=== PATIENT | male | born 1970 | race Caucasian/White ===

== ENCOUNTER 2023-01-12 12:23 | Inpatient (IN) ==
[2023-01-12 13:13] LABS: Basophils # (auto) 0.05 K/uL (0-0.2); Basophils % (auto) 0.4 %; Eosinophils # (auto) 2.76 K/uL (0-0.50); Eosinophils % (auto) 20.8 %; Hematocrit (blood only) 49.2 % (42.0-52.0); Hemoglobin 16.8 g/dl (14.0-18.0); Immature Granulocytes # (auto) 0.04 K/uL (0.01-0.20); Immature Granulocytes % (auto) 0.3 %; Lymphocytes # (auto) 1.61 K/uL (1.2-3.4); Lymphocytes % (auto) 12.2 %; Mean Corpuscular Hgb Conc 34.1 g/dL (32.0-36.0); Mean Corpuscular Volume 87.9 fL (80.0-100.0); Mean Platelet Volume 10.1 fL (9.4-12.4); Monocytes # (auto) 0.87 K/uL (0.11-0.59); Monocytes % (auto) 6.6 %; Neutrophils # (auto) 7.91 K/uL (1.40-6.50); Neutrophils % (auto) 59.7 %; Platelet Count 278 K/uL (130-400); RDW Coefficient of Variation 13.8 % (11.5-14.5); RDW Standard Deviation 43.7 fL (36.4-46.3); White Blood Count 13.24 K/ul (4.8-10.8)
[2023-01-12 13:16] LABS: Appearance Urine Clear (Clear); Bacteria Urine Automated Negative (Negative); Bilirubin Urine Negative (Negative); Blood Urine Negative (Negative); Color Urine Dark Yellow; Glucose Urine UA Negative (Negative); Ketones Urine Trace (Negative); Leukocyte Esterase Urine Negative (Negative); Nitrite Urine Negative (Negative); Protein Urine Trace (Negative); RBC Urine Automated 0-4 /hpf (0-4); Specific Gravity Urine 1.033 (1.000-1.030); Urobilinogen Urine Negative (Negative)
[2023-01-12 13:27] LABS: Alanine Aminotransferase 15 U/L (7-52); Albumin Globulin Ratio 1.5 (0.9-2); Albumin Level 4.4 gm/dl (3.4-5.0); Alkaline Phosphatase 51 U/L (34-104); Anion Gap 7 (3-11); Aspartate Aminotransferase 15 U/L (13-39); BUN Creatinine Ratio 12.4 (10-20); Bilirubin,Total 2.2 mg/dl (0.2-1.0); Blood Urea Nitrogen 14 mg/dl (6-23); Calcium 9.8 mg/dl (8.6-10.3); Carbon Dioxide 24 mmol/L (21-32); Chloride 107 mmol/L (98-107); Est GFR (African American) 86.1 ml/min; Est GFR (Non-African American) 74.3 ml/min; Glucose 146 mg/dl (70-99(Fasting)); Lipase 10 U/L (11-82); Sodium 138 mmol/L (136-145); Total Protein 7.4 gm/dl (6.0-8.3)
[2023-01-12] MEDS ORDERED: SODIUM CHLORIDE 0.9% 1,000 ML IV ONE (13:48)
--- NOTE | 2023-01-12 13:53 | Emergency Department Note ---
Impression & Plan SBO (small bowel obstruction) ADMIT ED Provider Note HPI: The patient is a 52-year-old gentleman with history of type 2 diabetes, presents emergency department with a chief complaint of epigastric pain as well as nausea and vomiting. Patient states his symptoms were ongoing last night, he states at that time he went to [place] ED and was diagnosed with a small bowel obstruction on CT imaging. Patient states that he signed out AMA as there were no beds available at either transferring facility from the ED in [place]. Patient states he feels fine this morning however he was concerned about his symptoms and therefore came to the ED to be evaluated. Patient states he had similar symptoms about 2 weeks ago that resolved after about 2 to 3 days. On arrival here to the ED the patient is in no acute distress, he is hemodynamically stable, he denies any current abdominal pain or nausea. ROS: - Per HPI Differential Diagnosis: Acute cholecystitis, acute pancreatitis, acute gastritis, peptic ulcer disease, small bowel obstruction, amongst other potentia l pathologies. *Outpatient medications and allergy history reviewed. *Pertinent external medical records reviewed. PE: General: Alert HEENT: Normocephalic, trachea midline Eyes: Extraocular eye movement is intact, no scleral erythema Pulmonary: Clear to auscultation bilaterally, no wheezing Cardio: Regular rate and rhythm GI: Abdomen is soft to palpation, mild distention : No suprapubic tenderness MSK: No evidence of trauma or malformation of the extremities, no edema Skin: No evidence of rash Neuro: Alert, no focal deficits Psychiatric: Cooperative pvc monitor: (As interpreted by myself): - An order was placed for continuous cardiac monitoring - Patient was noted to be in sinus rhythm with a rate of 90 Interventions provided in ED: -IV fluid bolus Medical Decision Making: Shortly after the patient arrived IV was established and lab work obtained, patient was maintained on cardiac sonographer. Lab work does show evidence of leukocytosis at 13.2, platelet count is normal, hemoglobin is normal, CMP does not show any critical findings, total bilirubin slightly elevated at 2.2, no transaminitis. Urinalysis shows trace ketonuria, no evidence of infection, no hematuria. CT imaging of the abdomen pelvis was obtained and shows evidence of small bowel obstruction without an obvious transition point. Patient has not had any nausea or vomiting today, he did last night but he has not had any oral intake within the past 12 hours. I suspect this may be why his symptoms seem to have improved. Given his lack of any active vomiting will defer NG tube at this time. I discussed all the above findings with the patient and his at the bedside, they are in agreement for admission for observation. Lactic acid was ordered and is pending at the time of admission. I discussed the patient's case with the on-call midlevel provider for [facility], [place], and patient will be accepted to the hospitalist service under Dr. Dela Cruz for further manage ment. Consultants: -Hospitalist service, Dr. Dela Cruz Disposition discussion held by myself with: Patient and at bedside Diagnosis: 1. Small bowel obstruction, acute 2. Ketonuria, trace 3. Leukocytosis, acute, nonspecific Disposition: Admission [facility] DO Emergency Medicine Past Med/Surg History Social History Smoking Status: Never smoker Preferred Language: Ivorian Feels Safe at Home: Yes Allergies Allergies Allergy/AdvReac Type Severity Reaction Status Date / Time No Known Allergies Allergy Mild Verified 11/24/07 17:02 Home Meds Home Medications Medication Instructions Recorded Confirmed Fexofenadine/Pseudoephedrine 1 tab PO DAILY ##0 11/24/07 (Vanda-D 24HR 180/240MG *) Results & Data (ED) Vital Signs Vital Signs - 24 hr 01/12/23 12:27 Temperature 36.8 C Temperature Source Temporal Artery Scan Pulse Rate 91 H Respiratory Rate 16 Respiratory Effort / Characteristics Non-Labored Respiratory Depth Normal Blood Pressure 119/78 Blood Pressure Mean 91 Pulse Oximetry 97 Oxygen Delivery Method Room Air Sepsis Recent Fever Within 48 Hours No Sepsis New/Unexplained Change in Mental Status No Sepsis Action Taken by Nursing No Action Required Laboratory Data 01/12/23 12:35 01/12/23 12:35 Lab Results 01/12/23 01/12/23 01/12/23 Range/Units 12:35 12:35 12:35 WBC 13.24 H (4.8-10.8) K/ul RBC 5.60 (4.70-6.10) M/uL Hgb 16.8 (14.0-18.0) g/dl Hct 49.2 (42.0-52.0) % MCV 87.9 (80.0-100.0) fL MCH 30.0 (25.0-34.0) pg MCHC 34.1 (32.0-36.0) g/dL RDW Std Deviation 43.7 (36.4-46.3) fL RDW Coeff of Nuvia 13.8 (11.5-14.5) % Plt Count 278 (130-400) K/uL MPV 10.1 (9.4-12.4) fL Immature Gran % (Auto) 0.3 % Neut % (Auto) 59.7 % Lymph % (Auto) 12.2 % [place] % (Auto) 6.6 % Eos % (Auto) 20.8 % Baso % (Auto) 0.4 % Neut # (Auto) 7.91 H (1.40-6.50) K/uL Lymph # (Auto) 1.61 (1.2-3.4) K/uL [place] # (Auto) 0.87 H (0.11-0.59) K/uL Eos # (Auto) 2.76 H (0-0.50) K/uL Baso # (Auto) 0.05 (0-0.2) K/uL Immature Gran # (Auto) 0.04 (0.01-0.20) K/uL Sodium 138 (136-145) mmol/L Potassium 4.0 (3.5-5.1) mmol/L Chloride 107 (98-107) mmol/L Carbon Dioxide 24 (21-32) mmol/L Anion Gap 7 (3-11) BUN 14 (6-23) mg/dl Creatinine 1.13 (0.6-1.4) mg/dl Est Cr Clr Drug Dosing Not Reportable Est GFR ( Amer) 86.1 ml/min Est GFR (Non-Af Amer) 74.3 ml/min BUN/Creatinine Ratio 12.4 (10-20) Glucose 146 H (70-99(Fasting)) mg/dl Lactate (0.4-2.0) mmol/L Calcium 9.8 (8.6-10.3) mg/dl Total Bilirubin 2.2 H (0.2-1.0) mg/dl AST 15 (13-39) U/L ALT 15 (7-52) U/L Alkaline Phosphatase 51 (34-104) U/L Total Protein 7.4 (6.0-8.3) gm/dl Albumin 4.4 (3.4-5.0) gm/dl Globulin 3.0 (2.5-4.0) gm/dl Albumin/Globulin Ratio 1.5 (0.9-2) Lipase 10 L (11-82) U/L Urine Color Dark Yellow Urine Appearance Clear (Clear) Urine pH 5.0 (4.5-7.5) Ur Specific Cook 1.033 H (1.000-1.030) Urine Protein Trace H (Negative) Urine Glucose (UA) Negative (Negative) Urine Ketones Trace H (Negative) Urine Blood Negative (Negative) Urine Nitrite Negative (Negative) Urine Bilirubin Negative (Negative) Urine Urobilinogen Negative (Negative) Ur Leukocyte Esterase Negative (Negative) Urine WBC (Auto) 1-5 (0-5) /hpf Urine RBC (Auto) 0-4 (0-4) /hpf U Hyaline Cast (Auto) 1-5 (0-5) /lpf U Epithel Cells (Auto) 5-10 H (0-5) /lpf Urine Bacteria (Auto) Negative (Negative) 01/12/23 Range/Units 15:00 WBC (4.8-10.8) K/ul RBC (4.70-6.10) M/uL Hgb (14.0-18.0) g/dl Hct (42.0-52.0) % MCV (80.0-100.0) fL MCH (25.0-34.0) pg MCHC (32.0-36.0) g/dL RDW Std Deviation (36.4-46.3) fL RDW Coeff of Nuvia (11.5-14.5) % Plt Count (130-400) K/uL MPV (9.4-12.4) fL Immature Gran % (Auto) % Neut % (Auto) % Lymph % (Auto) % [place] % (Auto) % Eos % (Auto) % Baso % (Auto) % Neut # (Auto) (1.40-6.50) K/uL Lymph # (Auto) (1.2-3.4) K/uL [place] # (Auto) (0.11-0.59) K/uL Eos # (Auto) (0-0.50) K/uL Baso # (Auto) (0-0.2) K/uL Immature Gran # (Auto) (0.01-0.20) K/uL Sodium (136-145) mmol/L Potassium (3.5-5.1) mmol/L Chloride (98-107) mmol/L Carbon Dioxide (21-32) mmol/L Anion Gap (3-11) BUN (6-23) mg/dl Creatinine (0.6-1.4) mg/dl Est Cr Clr Drug Dosing Est GFR ( Amer) ml/min Est GFR (Non-Af Amer) ml/min BUN/Creatinine Ratio (10-20) Glucose (70-99(Fasting)) mg/dl Lactate 1.0 (0.4-2.0) mmol/L Calcium (8.6-10.3) mg/dl Total Bilirubin (0.2-1.0) mg/dl AST (13-39) U/L ALT (7-52) U/L Alkaline Phosphatase (34-104) U/L Total Protein (6.0-8.3) gm/dl Albumin (3.4-5.0) gm/dl Globulin (2.5-4.0) gm/dl Albumin/Globulin Ratio (0.9-2) Lipase (11-82) U/L Urine Color Urine Appearance (Clear) Urine pH (4.5-7.5) Ur Specific Cook (1.000-1.030) Urine Protein (Negative) Urine Glucose (UA) (Negative) Urine Ketones (Negative) Urine Blood (Negative) Urine Nitrite (Negative) Urine Bilirubin (Negative) Urine Urobilinogen (Negative) Ur Leukocyte Esterase (Negative) Urine WBC (Auto) (0-5) /hpf Urine RBC (Auto) (0-4) /hpf U Hyaline Cast (Auto) (0-5) /lpf U Epithel Cells (Auto) (0-5) /lpf Urine Bacteria (Auto) (Negative) Administered Medications Discontinued Medications Sodium Chloride (Nss 1000ml) 1,000 mls @ 999 mls/hr IV .[id number] ONE Stop: 01/12/23 14:48 Last Admin: 01/12/23 14:48 Dose: 999 mls/hr Documented By: YAYO Ioversol (Optiray 320 100ml) 93 ml IV ONCE ONE Stop: 01/12/23 14:28 Last Admin: 01/12/23 14:27 Dose: 93 ml Documented By: EDK Imaging Data Radiologist's Impression: Abdomen/Pelvis CT 01/12/23 13:48 CT SCAN OF THE ABDOMEN AND PELVIS WITH IV CONTRAST CLINICAL HISTORY: Upper abdominal pain. Nausea and vomiting. COMPARISON STUDY: No priors. TECHNIQUE: Following the IV administration of 93 cc of Optiray 320, CT scan of the abdomen and pelvis is performed from the lung bases to the proximal femora. Images are reviewed in the axial, sagittal, and coronal planes. IV contrast was administered without complication. A dose lowering technique was utilized adhering to the principles of ALARA. CT DOSE: 1456.64 mGy.cm FINDINGS: Lung bases: The heart is normal in size and without pericardial effusion. The lung bases are clear. Liver: The contrast-enhanced liver is normal in size, contour, and attenuation. There is no intrahepatic biliary ductal dilatation. The hepatic veins and portal veins are patent. Gallbladder: There are calcified gallstones with no CT evidence of acute cholecystitis. Spleen: Normal in size and attenuation. Pancreas: Unremarkable. Adrenal glands: Unremarkable. Kidneys: The contrast enhanced kidneys demonstrate mild cortical atrophy and are without hydronephrosis. Small renal sinus cysts are seen on the left. A 12 mm cortical cyst is noted in the left lower pole. The kidneys enhance symmetrically. Abdominal vasculature: The abdominal aorta is normal in course and caliber. Bowel: The proximal small bowel loops are distended and fluid-filled measuring up to 4.3 cm diameter. This gradually tapers to decompressed distal small bowel, and the appearance is consistent with a small bowel obstruction. No discrete transition point is identified. There is trace interloop fluid. No focally thick-walled bowel loops are identified, and there is no pneumatosis intestinalis or portal venous gas. The appendix is well-visualized and normal. Peritoneum: There is trace interloop fluid. No intraperitoneal free air is seen. There is evidence of previous ventral hernia repair. Lymphadenopathy: None. Pelvic viscera: Hyperdense fluid within the bladder may represent excreted contrast. The bladder, prostate, and seminal vesicles are otherwise normal as visualized. Skeletal structures: There is mild lumbosacral spondylosis. No lytic or blastic lesions are seen. IMPRESSION: 1. Findings are consistent with a small bowel obstruction. The dilated proximal small bowel loops gradually taper to completely decompressed distal small bowel, with no discrete transition point identified. This may be a partial or intermittent obstruction. Correlate clinically. 2. There is trace interloop fluid. No intraperitoneal free air, thick-walled bowel loops, pneumatosis intestinalis, or portal venous gas is seen. 3. Cholelithiasis. 4. Hyperdense fluid within the bladder lumen is indeterminate and likely represent excreted contrast. Clinical correlation will be required. 5. Additional findings as above. ACT 112: Negative or not required by law. Electronically signed by: Oziel Rocha M.D. 01/12/2023 2:43 PM Discharge Plan Visit Data Chief Complaint: Abdominal Pain Stated Complaint: PARTIAL BLOCKAGE IN SMALL INTESTINE - ABD PAIN ED Provider: [facility] Discharge Problem: SBO (small bowel obstruction) Forms Stand Alone Forms: [id number] Prescriptions Prescriptions: No Action Fexofenadine/Pseudoephedrine (Vanda-D 24HR 180/240MG *) [id number] 1 tab PO DAILY Qty: 0 Referrals Referrals: Adolph Berry, MSN, [employer] [facility] [Primary Care Provider] -
[2023-01-12] MEDS ORDERED: OPTIRAY 320 100ml IV ONE (14:27)
--- NOTE | 2023-01-12 14:44 | CT Scan Report ---
CT SCAN OF THE ABDOMEN AND PELVIS WITH IV CONTRAST CLINICAL HISTORY: Upper abdominal pain. Nausea and vomiting. COMPARISON STUDY: No priors. TECHNIQUE: Following the IV administration of 93 cc of Optiray 320, CT scan of the abdomen and pelvi s is performed from the lung bases to the proximal femora. Images are reviewed in the axial, sagittal , and coronal planes. IV contrast was administered without complication. A dose lowering technique wa s utilized adhering to the principles of ALARA. CT DOSE: 1456.64 mGy.cm FINDINGS: Lung bases: The heart is normal in size and without pericardial effusion. The lung bases are clear. Liver: The contrast-enhanced liver is normal in size, contour, and attenuation. There is no intrahepa tic biliary ductal dilatation. The hepatic veins and portal veins are patent. Gallbladder: There are calcified gallstones with no CT evidence of acute cholecystitis. Spleen: Normal in size and attenuation. Pancreas: Unremarkable. Adrenal glands: Unremarkable. Kidneys: The contrast enhanced kidneys demonstrate mild cortical atrophy and are without hydronephros is. Small renal sinus cysts are seen on the left. A 12 mm cortical cyst is noted in the left lower po le. The kidneys enhance symmetrically. Abdominal vasculature: The abdominal aorta is normal in course and caliber. Bowel: The proximal small bowel loops are distended and fluid-filled measuring up to 4.3 cm diameter. This gradually tapers to decompressed distal small bowel, and the appearance is consistent with a sm all bowel obstruction. No discrete transition point is identified. There is trace interloop fluid. No focally thick-walled bowel loops are identified, and there is no pneumatosis intestinalis or portal venous gas. The appendix is well-visualized and normal. Peritoneum: There is trace interloop fluid. No intraperitoneal free air is seen. There is evidence of previous ventral hernia repair. Lymphadenopathy: None. Pelvic viscera: Hyperdense fluid within the bladder may represent excreted contrast. The bladder, pro state, and seminal vesicles are otherwise normal as visualized. Skeletal structures: There is mild lumbosacral spondylosis. No lytic or blastic lesions are seen. IMPRESSION: 1. Findings are consistent with a small bowel obstruction. The dilated proximal small bowel loops gra dually taper to completely decompressed distal small bowel, with no discrete transition point identif ied. This may be a partial or intermittent obstruction. Correlate clinically. 2. There is trace interloop fluid. No intraperitoneal free air, thick-walled bowel loops, pneumatosis intestinalis, or portal venous gas is seen. 3. Cholelithiasis. 4. Hyperdense fluid within the bladder lumen is indeterminate and likely represent excreted contrast. Clinical correlation will be required. 5. Additional findings as above. ACT 112: Negative or not required by law. Electronically signed by: Oziel Rocha M.D. 01/12/2023 2:43 PM
--- NOTE | 2023-01-12 16:00 | History & Physical Report ---
Date of Service January 12, 2023 Assessment & Plan (1) SBO (small bowel obstruction): Plan: This is a 52 y/o male with DM2, HTN, and on chronic AC with Xarelto due to history of DVT who presented to the ED today for evaluation after being diagnosed with an SBO last night at the [facility] ED. Symptomatically, he is improved today but also reports no significant oral intake since lunch yesterday. CT abd/pel personally reviewed - dilated proximal small bowel but no clear transition point. Only prior abdominal surgery is the umbilical hernia repair. - Admit to med surg for observation with the initiation of oral intake - Consult surgery although does appear like obstruction will resolve with conservative management - Hold on NGT for now since not vomiting and feeling better overall - if develops vomiting, will re-evaluate - Trial of clear liquid diet since pt has not eaten x 24 hours and is clinically improved. If recurrent symptoms, will make pt NPO again. - Anti-emetics prn for nausea (2) Type 2 diabetes mellitus: Plan: Stopping Mounjaro due to side effects since he started this 9 weeks ago. Insulin sliding scale was admitted (3) History of DVT of lower extremity: Plan: Holding Xarelto for now although need for operative intervention at this point seems low - heparin gtt with no bolus, resume Xarelto once able (4) Essential hypertension: Plan: Continue outpatient Lisinopril Plan Pt seen and reviewed with collaborating physician, Dr. Dela Cruz. Plan of care discussed and as outlined above. Code Status: Full code DVT Prophylaxis: Heparin gtt until can resume Xarelto (hx DVT previously) Alyssa Eli PA-C History of Present Illness Chief Complaint: abdominal pain and bloating x 2 days Primary Care Provider: Adolph Berry, MSN, OPHTHALMIC ASST This is a 52 y/o male with DM2, HTN, hx DVT bilateral LE, on chronic Xarelto, and prior umbilical hernia repair presents to the ED with two days of bloating, nausea, and abdominal discomfort. Pt reports current episode of symptoms started Sunday night while sleeping with increased sulfur-tasting eructation and nausea. Yesterday, he tried to eat Spaghetti Os for lunch and felt dramatically worse after with increased abdominal bloating, diffuse abdominal cramping pains then vomiting of undigested food x 3. He had some relief of his symptoms after vomiting but incomplete so went to the [facility] ED for evaluation. In the ED, he was diagnosed with an SBO and recommended for admission but there were no beds at either [facility] or [facility] to transfer patient to so he decided to sign out AMA and go home instead. Since being home, his symptoms have continued to improve but he has not tried to eat at all since yesterday lunch. He had associated liquid non-bloody diarrhea yesterday that also seems to be improving. This is his third episode of symptoms in the last nine weeks. Prior episodes lasted 1-2.5 days and resolved without specific intervention. He has noted diarrhea with these episodes and reports that he was prescribed Lomotil for this but that it didn't help so he has not been taking. He notes that nine weeks ago he started Mounjaro and changed his diet to add protein shakes and increase his fiber intake including the addition of Metamucil BID. He is unsure if this is related to his current symptoms. He had a colonoscopy earlier this year that was negative. His only prior abdominal surgery was an umbilical hernia several years ago. No prior bowel obstruction. Allergies Allergy/AdvReac Type Severity Reaction Status Date / Time dapagliflozin [From Farxiga] AdvReac infected Verified 01/12/23 15:39 genitals semaglutide [From Ozempic] AdvReac Nausea Verified 01/12/23 15:39 Home Medications Medication Instructions Recorded Confirmed Type acetaminophen 500 mg tablet 1,000 mg PO Q6H PRN Pain 01/12/23 01/12/23 History (Tylenol Extra Strength) lisinopril 30 mg tablet 30 mg PO DAILY 01/12/23 01/12/23 History rivaroxaban 10 mg tablet (Xarelto) 10 mg PO QPM 01/12/23 01/12/23 History tirzepatide 2.5 mg/0.5 mL 2.5 mg subcut WE 01/12/23 01/12/23 History subcutaneous pen injector (Mounjaro) Past Med/Surg History Medical History Essential hypertension History of DVT of lower extremity Type 2 diabetes mellitus Surgical History History of colonoscopy 2022 - normal per pt Hx of umbilical hernia repair Family History Grandfather (Maternal) Colorectal cancer Social History Smoking Status: Never smoker Hx Alcohol Use: No Hx Substance Use: No Preferred Language: Khmer Communication Ability: Effective Supervisor Hydrochloric Area Required: No Beliefs That Will Affect Care: None Current Living Situation: Alone current occupational status: employed current occupation: machinist supervisor outside Other Information That Helps Us Care for You: No Feels Safe at Home: Yes Safety Concerns: Feels Safe At This Time Review of Systems Review of Systems: All systems reviewed & are unremarkable except as noted in HPI & below Constitutional: no fever, no chills and no sweats Eyes: no diplopia and no worsening vision Ear, Nose, Mouth, Throat: no nasal congestion, no nasal discharge and no sore throat Respiratory: no cough and no dyspnea Cardiovascular: no chest pain, no palpitations and no edema Gastrointestinal: as per Subjective / HPI Genitourinary: no dysuria or no hematuria Musculoskeletal: no back pain, no neck pain and no myalgia Integumentary: no rash and no yellowing of the skin Neurologic: no generalized weakness, no syncope and no headache(s) Psychiatric: no depression and no anxiety Physical Exam Constitutional: well developed and well nourished; no acute distress Eyes: + anicteric sclerae Neck: trachea midline Respiratory: no respiratory distress and no labored breathing Auscultation: lungs clear to auscultation bilaterally; no rales, no rhonchi and no wheezes Cardiovascular: Rate/Rhythm: regular rate and regular rhythm Vessels: posterior tibial pulses present and radial pulses present Extremities: no pedal edema Gastrointestinal (Abdomen): Inspection/Auscultation: + abdomen distended and normal bowel sounds Percussion/Palpation: + abdomen tender (upper abdomen) and abdomen soft Musculoskeletal: Head/Neck/Chest: normocephalic, head atraumatic and neck supple Skin: no rashes and no jaundice Neurologic: moves all extremities; no focal motor deficits and not confused Psychiatric: A+Ox3, euthymic affect Results & Data Results & Data Vital Signs (Past 12 Hours) Vital Signs Temp Pulse Resp BP Pulse Ox O2 Del Method 01/12/23 12:27 36.8 C 91 H 16 119/78 97 Room Air Laboratory Results Laboratory Results - last 24 hr 01/12/23 01/12/23 01/12/23 12:35 12:35 12:35 WBC 13.24 H RBC 5.60 Hgb 16.8 Hct 49.2 MCV 87.9 MCH 30.0 MCHC 34.1 RDW Std Deviation 43.7 RDW Coeff of Nuvia 13.8 Plt Count 278 MPV 10.1 Immature Gran % (Auto) 0.3 Neut % (Auto) 59.7 Lymph % (Auto) 12.2 Rock % (Auto) 6.6 Eos % (Auto) 20.8 Baso % (Auto) 0.4 Neut # (Auto) 7.91 H Lymph # (Auto) 1.61 Rock # (Auto) 0.87 H Eos # (Auto) 2.76 H Baso # (Auto) 0.05 Immature Gran # (Auto) 0.04 Sodium 138 Potassium 4.0 Chloride 107 Carbon Dioxide 24 Anion Gap 7 BUN 14 Creatinine 1.13 Est Cr Clr Drug Dosing Not Reportable Est GFR ( Amer) 86.1 Est GFR (Non-Af Amer) 74.3 BUN/Creatinine Ratio 12.4 Glucose 146 H Lactate Calcium 9.8 Total Bilirubin 2.2 H AST 15 ALT 15 Alkaline Phosphatase 51 Total Protein 7.4 Albumin 4.4 Globulin 3.0 Albumin/Globulin Ratio 1.5 Lipase 10 L Urine Color Dark Yellow Urine Appearance Clear Urine pH 5.0 Ur Specific Stuart 1.033 H Urine Protein Trace H Urine Glucose (UA) Negative Urine Ketones Trace H Urine Blood Negative Urine Nitrite Negative Urine Bilirubin Negative Urine Urobilinogen Negative Ur Leukocyte Esterase Negative Urine WBC (Auto) 1-5 Urine RBC (Auto) 0-4 U Hyaline Cast (Auto) 1-5 U Epithel Cells (Auto) 5-10 H Urine Bacteria (Auto) Negative 01/12/23 15:00 WBC RBC Hgb Hct MCV MCH MCHC RDW Std Deviation RDW Coeff of Nuvia Plt Count MPV Immature Gran % (Auto) Neut % (Auto) Lymph % (Auto) Rock % (Auto) Eos % (Auto) Baso % (Auto) Neut # (Auto) Lymph # (Auto) Rock # (Auto) Eos # (Auto) Baso # (Auto) Immature Gran # (Auto) Sodium Potassium Chloride Carbon Dioxide Anion Gap BUN Creatinine Est Cr Clr Drug Dosing Est GFR ( Amer) Est GFR (Non-Af Amer) BUN/Creatinine Ratio Glucose Lactate 1.0 Calcium Total Bilirubin AST ALT Alkaline Phosphatase Total Protein Albumin Globulin Albumin/Globulin Ratio Lipase Urine Color Urine Appearance Urine pH Ur Specific Stuart Urine Protein Urine Glucose (UA) Urine Ketones Urine Blood Urine Nitrite Urine Bilirubin Urine Urobilinogen Ur Leukocyte Esterase Urine WBC (Auto) Urine RBC (Auto) U Hyaline Cast (Auto) U Epithel Cells (Auto) Urine Bacteria (Auto) Diagnostic Findings Abdomen/Pelvis CT 01/12/23 13:48 CT SCAN OF THE ABDOMEN AND PELVIS WITH IV CONTRAST CLINICAL HISTORY: Upper abdominal pain. Nausea and vomiting. COMPARISON STUDY: No priors. TECHNIQUE: Following the IV administration of 93 cc of Optiray 320, CT scan of the abdomen and pelvis is performed from the lung bases to the proximal femora. Images are reviewed in the axial, sagittal, and coronal planes. IV contrast was administered without complication. A dose lowering technique was utilized adhering to the principles of ALARA. CT DOSE: 1456.64 mGy.cm FINDINGS: Lung bases: The heart is normal in size and without pericardial effusion. The lung bases are clear. Liver: The contrast-enhanced liver is normal in size, contour, and attenuation. There is no intrahepatic biliary ductal dilatation. The hepatic veins and portal veins are patent. Gallbladder: There are calcified gallstones with no CT evidence of acute cholecystitis. Spleen: Normal in size and attenuation. Pancreas: Unremarkable. Adrenal glands: Unremarkable. Kidneys: The contrast enhanced kidneys demonstrate mild cortical atrophy and are without hydronephrosis. Small renal sinus cysts are seen on the left. A 12 mm cortical cyst is noted in the left lower pole. The kidneys enhance symmetrically. Abdominal vasculature: The abdominal aorta is normal in course and caliber. Bowel: The proximal small bowel loops are distended and fluid-filled measuring up to 4.3 cm diameter. This gradually tapers to decompressed distal small bowel, and the appearance is consistent with a small bowel obstruction. No discrete transition point is identified. There is trace interloop fluid. No focally thick-walled bowel loops are identified, and there is no pneumatosis intestinalis or portal venous gas. The appendix is well-visualized and normal. Peritoneum: There is trace interloop fluid. No intraperitoneal free air is seen. There is evidence of previous ventral hernia repair. Lymphadenopathy: None. Pelvic viscera: Hyperdense fluid within the bladder may represent excreted contrast. The bladder, prostate, and seminal vesicles are otherwise normal as visualized. Skeletal structures: There is mild lumbosacral spondylosis. No lytic or blastic lesions are seen. IMPRESSION: 1. Findings are consistent with a small bowel obstruction. The dilated proximal small bowel loops gradually taper to completely decompressed distal small bowel, with no discrete transition point identified. This may be a partial or intermittent obstruction. Correlate clinically. 2. There is trace interloop fluid. No intraperitoneal free air, thick-walled bowel loops, pneumatosis intestinalis, or portal venous gas is seen. 3. Cholelithiasis. 4. Hyperdense fluid within the bladder lumen is indeterminate and likely represent excreted contrast. Clinical correlation will be required. 5. Additional findings as above. ACT 112: Negative or not required by law. Electronically signed by: Oziel Rocha M.D. 01/12/2023 2:43 PM Medications Administered Discontinued Medications Sodium Chloride (Nss 1000ml) 1,000 mls @ 999 mls/hr IV .Q1H1M ONE Stop: 01/12/23 14:48 Last Admin: 01/12/23 14:48 Dose: 999 mls/hr Documented By: TBS Ioversol (Optiray 320 100ml) 93 ml IV ONCE ONE Stop: 01/12/23 14:28 Last Admin: 01/12/23 14:27 Dose: 93 ml Documented By: EDK Code Status & VTE Plan VTE Prophylaxis Plan VTE Prophylaxis will be ordered: Yes Supervising Physician Co-Signing Physician Notes I have seen and examined the patient and have discussed the case with the provider above. I agree with the assessment and plan as stated with the fol lowing exceptions. 52 yo M presenting with acute abdominal pain and vomiting in the last 24 hours. Workup in the ER includes an abd/pel CT scan with IV contrast which reveals a small bowel obstruction with no discrete transition point. He is currently not in pain and denies nausea. Recently was started on Mounjaro (GLP-1 agonist) 9 weeks ago for uncontrolled DMII. He is part of [facility], so those records are not currently available. He reports having been a diabetic for the past 4 years and has tried metformin which didnt do much for me. He has tried Ozempic which gave him side effects. On exam he is in NAD. He is morbidly obese and has an umbilical hernia which is easily reduced. Vitals are BP119/78, P 91, R 16, AF and oxygenating 97% on RA. Heart and lung exam unremarkable or as noted above. Labwork reviewed, noting mild leukocytosis of 14K and otherwise normal CBC. TB slightly elevated to 2.2 with normal LFTs. Lipase 10 and no UTI. Glucose is 146 and patient reports not having any food since 24 hours ago, so is fasting. 1. SBO 2. Uncontrolled DMII 3. Morbid obesity Agree with plan above for clear liquids given ongoing bowel rest for the past 24 hours. If he has pain or nausea, will make NPO. No need for NG tube at this time. Appreciate surgical evaluation. Pt has an umbilical hernia which is reducible and nontender. Discontinue Mounjaro given the side effects he experienced, and would recommend avoiding GLP-1 agonists at this time. Consider metformin and once daily Lantus, glipizide or other agent. Appreciate nurse educator consultation. Follow-up closely with PCP to guide treatment for DMII. DO Jose De Jesus
[2023-01-12] MEDS ORDERED: GLUCOSE 10 TAB/TUBE PO PRN (18:37)
[2023-01-12] MEDS ORDERED: GLUCAGON FOR INJ 1 MG VIAL SQ PRN (18:37)
[2023-01-12] MEDS ORDERED: DEXTROSE 50% 50 ML SYRINGE IV PRN (18:37)
[2023-01-12] MEDS ORDERED: CARBOHYDRATES FOR HYPOGLYCEMIA PO PRN (18:37)
[2023-01-12] MEDS ORDERED: GLUCOSE 40% GEL 15 GM TUBE PO PRN (18:37)
[2023-01-12] MEDS ORDERED: ONDANSETRON INJ 2 MG/ML 2 ML VIAL IV PRN (19:34)
[2023-01-12] MEDS: INSULIN ASPART PER UNIT CHARGE SC SCH ×2 (19:52→20:36)
[2023-01-12 20:17] LABS: Partial Thromboplastin Time 27.6 Seconds (21.0-31.0)
[2023-01-12] MEDS: HEPARIN SODIUM/DEXTROSE 25,000 UNITS/500 ML BAG IV SCH (20:47)
[2023-01-12] MEDS ORDERED: Heparin IV Adult Wt-Based Standard *NO* Bolus Protocol IV ONE (21:00)
--- NOTE | 2023-01-12 21:24 | Surgery Consultation ---
Date of Consultation January 12, 2023 Assessment & Plan (1) SBO (small bowel obstruction): Patient has been admitted on the medical service. We recommend proceeding as follows: The admitting service has placed patient on clear liquids which she appears to be tolerating at this time. I would not place patient on any further diet advancement for this evening and merely monitor how he tolerates clear liquids. If the patient has improvement of his abdominal exam and continues to have bowel function consideration can be given to advancing his diet potentially tomorrow. Would recommend providing analgesics as needed Would recommend antiemetics as needed. As patient has not had any emesis in approximately 24 hours I not feel an NG tube is required. If patient does have worsening clinical course this modality may need to be revisited. Would recommend providing IV fluid for hydration. Patient does have a heparin drip running at this point in time. Additional recommendations be forthcoming based on his clinical course as it unfolds Supervising Physician Co-Signing Physician Notes d/w loly cortez, labs and imaging reviewed, agree with above. CT with gentle tapering from dilated bowel to decompressed bowel, no transition point. Given use of Mounjara, and lack of transition point, doubt sbo, more likely pseudo- obstruction from GLP1 family of drugs. clear liquids, no surgical intervention at this time. consider stopping Mounjara. History of Present Illness Reason for Consultation: Small bowel obstruction Attending Physician: Lucy Dela Cruz, DO History of Present Illness This is a 52-year-old male who presented to [facility] emergency department secondary to approximately 2 days of abdominal pain along with nausea and vomiting. Patient said that his symptoms began approximately 2 days ago some generalized abdominal pain along with nausea and vomiting. Patient says his nausea got worse after he tried to eat lunch. Yesterday he presented to [facility] where he was diagnosed with a small bowel obstr uction and admission was recommended. Patient reportedly signed out AMA but then presented to [facility] emergency department for further care. Patient has not had any fevers, shakes, or chills. Since arrival to [facility] he has been having multiple loose bowel movements. He notes that his abdominal pain has improved. He has not had any emesis in approximate 24 hours and has thus far tolerated clear liquids. Patient notes that he has had 1 abdominal surgery in the form of an umbilical hernia approximately 10 years ago and he believes that they did utilize mesh for this procedure. Since arrival to the hospital the patient has had labs and imaging which I independent reviewed. CT scan of the abdomen pelvis showed patient had findings consistent with a small bowel obstruction with dilated proximal small bowel loops gradually tapering to decompressed distal small bowel with no discrete transition point. Interpreting radiologist felt that this could be either a partial or intermittent obstruction. There is no intraperitoneal free air or pneumatosis intestinalis. There is also no portal venous gas. Labs include a CBC her white blood cell count was elevated at 13.2. Hemoglobin, hematocrit, and platelet count were all within normal range. Chemistry profile showed sodium, potassium, BUN, and creatinine are within normal range. Lactic acid level was not elevated. At the time my interview the patient is resting comfortably in bed and is in no distress. Allergies Allergy/AdvReac Type Severity Reaction Status Date / Time dapagliflozin [From Farxiga] AdvReac infected Verified 01/12/23 15:39 genitals semaglutide [From Ozempic] AdvReac Nausea Verified 01/12/23 15:39 Home Medications Medication Instructions Recorded Confirmed Type acetaminophen 500 mg tablet 1,000 mg PO Q6H PRN Pain 01/12/23 01/12/23 History (Tylenol Extra Strength) lisinopril 30 mg tablet 30 mg PO DAILY 01/12/23 01/12/23 History rivaroxaban 10 mg tablet (Xarelto) 10 mg PO QPM 01/12/23 01/12/23 History tirzepatide 2.5 mg/0.5 mL 2.5 mg subcut WE 01/12/23 01/12/23 History subcutaneous pen injector (Mounjaro) Patient History Medical History Essential hypertension History of DVT of lower extremity Type 2 diabetes mellitus Surgical History History of colonoscopy 2022 - normal per pt Hx of umbilical hernia repair Family History Grandfather (Maternal) Colorectal cancer Social History Smoking Status: Never smoker Hx Alcohol Use: No Hx Substance Use: No Preferred Language: Arabic current occupational status: employed current occupation: production machinist Feels Safe at Home: Yes Review of Systems Constitutional: no fever and no chills Eyes: + corrective lenses Ear, Nose, Mouth, Throat: no ear pain Respiratory: no cough and no dyspnea Cardiovascular: no chest pain Gastrointestinal: as per Subjective / HPI Genitourinary: no dysuria Musculoskeletal: no back pain Integumentary: no rash Neurologic: no localized weakness Physical Exam 2 Constitutional: WD/WN, vitals as above Eyes: Wears glasses ENMT: Ears: no hearing impairment and no external ear abnormality Mouth: no oropharynx abnormality Neck: trachea midline Respiratory: normal respiratory effort; no respiratory distress and no labored breathing Cardiovascular: Rate/Rhythm: regular rate and regular rhythm Gastrointestinal (Abdomen): Abdomen is rotund and minimally distended. Bowel sounds are present. There is no rebound tenderness or guarding. There is minimal pain with palpation. Musculoskeletal: No calf tenderness Skin: no rashes Neurologic: moves all extremities Psychiatric: A+Ox3, euthymic affect Results & Data Vital Signs (Past 12 Hours) Vital Signs Temp Pulse Pulse Resp BP BP Pulse Ox 01/12/23 19:15 79 23 122/75 98 01/12/23 18:11 80 18 128/71 96 01/12/23 12:27 36.8 C 91 H 16 119/78 97 O2 Del Method 01/12/23 19:15 Room Air 01/12/23 18:11 Room Air 01/12/23 12:27 Room Air PG Care Time/CCT Total # of Minutes Spent Total Time Spent with Patient: Total time spent is greater than 50% in coordination of care (as documented) at patient's floor/unit and/or counseling patient: Coding Level of Care Code 82121 IN/OBS CONSULT LVL 5,80M Diagnoses SBO (small bowel obstruction) K56.609
--- NOTE | 2023-01-13 06:20 | Surgery Progress Note ---
Date of Service January 13, 2023 Assessment & Plan (1) SBO (small bowel obstruction): Plan: Patient has been admitted on the medical service. Continue care as follows: Continue clear liquids for the present time. If patient continues to improve consideration be given to advancing his diet further. Continue analgesics as needed Continue antiemetics as needed Encourage ambulation Admission and Anticipated Discharge Date Admission Date: January 12, 2023 Supervising Physician Co-Signing Physician Notes Patient seen and examined, labs and imaging reviewed, agree with above. Admitted with likely small bowel pseudoobstruction, less likely mechanical partial small bowel obstruction. Apparently has had several episodes of this in the past after starting Mounjaro. He feels better, has tolerated clear liquids is passing some flatus. On exam he is afebrile with stable vitals. His abdomen is soft, nontender, nondistended. He can advance to fulls and if he tolerates may advance to low fiber. I would recommend him stopping Mounjaro or at least discussing this with his PCP as he apparently also had trouble with Ozempic. Surgery will sign off, call with questions or concerns. Subjective Patient is resting comfortably in bed. Since my visit last evening he denies any issues specifically noting he has not had any nausea or vomiting and denies any abdominal pain this morning. He said that he did have a bowel movement since admission. He is tolerating clear liquids without any issues. I discussed with shift production associate RN who notes that there have been no issues overnight. Physical Exam Gastrointestinal (Abdomen): Abdomen is soft and nonrigid and is not distended. Bowel sounds are present. There is no rebound tenderness or guarding and there is no pain with palpation. Results & Data Vital Signs (Past 12 Hours) Vital Signs Temp Pulse Pulse Resp BP Pulse Ox O2 Del Method 01/12/23 20:10 36.8 C 72 14 121/77 98 Room Air 01/12/23 19:15 79 23 122/75 98 Room Air PG Care Time/CCT Total # of Minutes Spent Total Time Spent with Patient: Total time spent is greater than 50% in coordination of care (as documented) at patient's floor/unit and/or counseling patient: Coding Level of Care Code 61572 SUB INP/OBS CARE 25MIN Diagnoses SBO (small bowel obstruction) K56.609
[2023-01-13] MEDS ORDERED: lisinopril 10 MG TAB PO SCH (09:00)
[2023-01-13 09:08] LABS: Estimated Average Glucose 154 mg/dl
[2023-01-13] MEDS: INSULIN ASPART PER UNIT CHARGE SC SCH ×2 (09:23→12:44)
[2023-01-13 09:33] LABS: Partial Thromboplastin Ratio 2.4
[2023-01-13] MEDS: HEPARIN SODIUM/DEXTROSE 25,000 UNITS/500 ML BAG IV SCH (10:15)
--- NOTE | 2023-01-13 16:01 | Discharge Summary ---
Date of Service January 13, 2023 Admission HPI Per Admitting Provider This is a 52 y/o male with DM2, HTN, hx DVT bilateral LE, on chronic Xarelto, and prior umbilical hernia repair presents to the ED with two days of bloating, nausea, and abdominal discomfort. Pt reports current episode of symptoms started Sunday night while sleeping with increased sulfur-tasting eructation and nausea. Yesterday, he tried to eat Spaghetti [employer] for lunch and felt dramatically worse after with increased abdominal bloating, diffuse abdominal cramping pains then vomiting of undigested food x 3. He had some relief of his symptoms after vomiting but incomplete so went to the [place] ED for evaluation. In the ED, he was diagnosed with an SBO and recommended for admission but there were no beds at either [facility] or [facility] to transfer patient to so he decided to sign out AMA and go home instead. Since being home, his symptoms have continued to improve but he has not tried to eat at all since yesterday lunch. He had associated liquid non-bloody diarrhea yesterday that also seems to be improving. This is his third episode of symptoms in the last nine weeks. Prior episodes lasted 1-2.5 days and resolved without specific intervention. He has noted diarrhea with these episodes and reports that he was prescribed Lomotil for this but that it didn't help so he has not been taking. He notes that nine weeks ago he started Mounjaro and changed his diet to add protein shakes and increase his fiber intake including the addition of Metamucil BID. He is unsure if this is related to his current symptoms. He had a colonoscopy earlier this year that was negative. His only prior abdominal surgery was an umbilical hernia several years ago. No prior bowel obstruction. Admission Exam Per Admitting Provider Constitutional: well developed and well nourished; no acute distress Eyes: + anicteric sclerae Neck: trachea midline Respiratory: no respiratory distress and no labored breathing Auscultation: lungs clear to auscultation bilaterally; no rales, no rhonchi and no wheezes Cardiovascular: Rate/Rhythm: regular rate and regular rhythm Vessels: posterior tibial pulses present and radial pulses present Extremities: no pedal edema Gastrointestinal (Abdomen): Inspection/Auscultation: + abdomen distended and normal bowel sounds Percussion/Palpation: + abdomen tender (upper abdomen) and abdomen soft Musculoskeletal: Head/Neck/Chest: normocephalic, head atraumatic and neck supple Skin: no rashes and no jaundice Neurologic: moves all extremities; no focal motor deficits and not confused Psychiatric: A+Ox3, euthymic affect Principal Diagnosis Small bowel obstruction History of T2DM, intolerance to dapagliflozin/semaglutide/Mounjaro/metformin Discharge Exam GENERAL: Alert and oriented x3. NAD, on RA. Obese class I HEENT: No pallor, no icterus. Pupils equal, round and reactive to light. Oral mucosa moist. NECK: No JVD, no neck masses. HEART: S1 and S2 heard. Regular rate and rhythm. No murmur, no gallop. RESPIRATORY SYSTEM: Normal AP diameter. No accessory muscle use. No wheezing, no crackles. ABDOMEN: Soft, bowel sounds present, nontender, no distention. CENTRAL NERVOUS SYSTEM: No facial droop. Speech is clear. Obeys simple commands. Moves extremities. EXTREMITIES: No edema, no erythema seen. Discharge Data Allergies Allergy/AdvReac Type Severity Reaction Status Date / Time dapagliflozin [From Farxiga] AdvReac infected Verified 01/12/23 15:39 genitals semaglutide [From Ozempic] AdvReac Nausea Verified 01/12/23 15:39 Consultations 01/12/23 15:00 ED Decision to Admit Stat 01/12/23 18:37 Consult General Surgery Routine Ordered Studies 01/12/23 13:48 CT Abd and Pelvis [CT abd pelvis IV con only] Stat Hospital Course (1) SBO (small bowel obstruction): 52 y/o male with DM2, HTN, and on chronic AC with Xarelto due to history of DVT who presented to the ED 01/12 for evaluation after being diagnosed with an SBO last night at the [place] ED. Symptomatically, he is improved at arrival but also reports no significant oral intake since lunch the day prior to arrival. CT abd/pel personally reviewed - dilated proximal small bowel but no clear transition point. Only prior abdominal surgery is the umbilical hernia repair. Surgery evaluated, patient tolerated advancement of diet well, patient to continue with low fiber soft diet for few weeks and then back to regular consistency diet. Since patient complains of having abdominal pain 3 times so far after being started on Mounjaro, it has been discontinued at discharge. Patient has been instructed to follow-up with PCP and diabetic clinic closely for ongoing management of his diabetes, his A1c is 7.0 this admission, he will be discharged on glyburide, patient has shown reluctance to insulin while inpatient. Patient reports moving bowels yesterday evening, has been tolerating diet well. (2) Type 2 diabetes mellitus: Stopping Mounjaro due to side effects since he started this 9 weeks ago. Insulin sliding scale was admitted -patient was reluctant to eat. Being discharged on sulfonylurea, patient to closely follow-up with PCP and diabetic clinic for ongoing long-term management of his diabetes. (3) History of DVT of lower extremity: Continue his home Xarelto. (4) Essential hypertension: Continue outpatient Lisinopril Plan Code Status: Full code Patient being discharged home with following instruction at the point of discharge: Follow-up with your primary care physician within a week time and likely you will need labs CBC/CMP/magnesium/phosphorus. You were admitted for abdominal pain/possible SBO likely secondary to side effect from your Mounjaro. Your diabetic medication Mounjaro has been stopped. Since you have ran out of Farxiga/Ozempic/Mounjaro/metformin due to adverse reaction, you are being discharged on glyburide. Take it once a day to begin with, and it will need weekly up titration. As discussed at the bedside, recomm end close follow-up with diabetic clinic and with your PCP for ongoing diabetic management. You will also benefit from using insulin as various options have been not compatible with you, please consider this and recommend discussing with your primary care physician. Of note, your A1c level of 7.0 this admission. Maintain low fiber soft diet for few weeks and then go back to your regular consistency diet. Take your medications as prescribed. Please make sure that you are able to get your medications today by calling your pharmacy before you leave the hospital so that your treatment continuity is not broken. Home Health Attestation I certify that this patient is under my care and that I, or a physicians certified ophthalmic surgical assistant working with me, had a face to-face encounter that meets the home health xtff-qv-yath encounter requirements with this patient. The encounter with the patient was in whole, or in part, for the following medical condition, which is the primary reason for home health care (list medical condition): I certify that, based on my findings, the following services are medically necessary home health services: My clinical findings support the need for the above services because: Further, I certify that my clinical findings support that this patient is homebound (i.e. absences from home require considerable and taxing effort and are for medical reasons or confucianism services or infrequently or of short duration when for other reasons) because: Certification for Home Health Services: Based on the above findings, I certify that this patient is confined to the home and needs intermittent retirement care, physical therapy and/or speech therapy or continues to need occupational therapy. The patient is under my care, and I have initiated the establishment of the plan of care. This patient will be followed by a physician who will periodically review the plan of care. Total Time Total Time Spent Total Time Spent (In Minutes): 45 Discharge Plan Discharge Items Patient Disposition: Home - Self-Care Reason For Visit: SBO Discharge Diagnosis: Small bowel obstruction History of T2DM, intolerance to dapagliflozin/semaglutide/Mounjaro/metformin Activity: Resume your previous activity Non-emergency contact: Primary Care Provider Call non-emergency contact if: you have any medication questions Follow-up/Referrals: Adolph Berry, MSN, [employer] [Primary Care Provider] - Diet: Low Fiber Addtl Attending Provider Instructions: Follow-up with your primary care physician within a week time and likely you will need labs CBC/CMP/magnesium/phosphorus. You were admitted for abdominal pain/possible SBO likely secondary to side effect from your Mounjaro. Your diabetic medication Mounjaro has been stopped. Since you have ran out of Farxiga/Ozempic/Mounjaro/metformin due to adverse reaction, you are being discharged on glyburide. Take it once a day to begin with, and it will need weekly up titration. As discussed at the bedside, recommend close follow-up with diabetic clinic and with your PCP for ongoing diabetic management. You will also benefit from using insulin as various options have been not compatible with you, please consider this and recommend discussing with your primary care physician. Of note, your A1c level of 7.0 this admission. Maintain low fiber soft diet for few weeks and then go back to your regular consistency diet. Take your medications as prescribed. Please make sure that you are able to get your medications today by calling your pharmacy before you leave the hospital so that your treatment continuity is not broken. Pending Studies at Discharge: No Stand-Alone Forms: My [facility], Smoking Cessation Medications and DC Order Prescriptions: New glyburide 2.5 mg tablet 2.5 mg PO DAILY Qty: 30 0RF Continued acetaminophen [Tylenol Extra Strength] 500 mg Tablet 1,000 mg PO Q6H PRN (Reason: Pain) lisinopril 30 mg tablet 30 mg PO DAILY Xarelto 10 mg tablet 10 mg PO QPM Discontinued Mounjaro 2.5 mg/0.5 mL pen injector 2.5 mg SUBCUT WE Rx Instructions: Q Sun Discharge Orders: Discharge Order (Routine); Ordered 01/13/23 Ordered By: Evens Lira Admission Data Admit Date/Time: 01/12/23 15:37 Attending Provider: Evens Lira Admit Provider: Lucy Dela Cruz Primary Care Provider: Adolph Berry Other Providers: Lucy Dela Cruz ; Anuel Mendenhall
== END 2023-01-13 16:59 | disposition home or self-care (01) | DRG 390 ==
LOC: ED 12:23 → SUATTDRO 15:37 → INTOOBSV 15:37 → OBSVTOIN 15:37 → EDINP 15:37 → 3N 20:01